=== PATIENT | female | born 1995 | race Caucasian/White ===

== ENCOUNTER 2017-04-28 21:14 | Emergency (ER) | payer OTHER | END 2017-04-28 21:52 | disposition home or self-care (01) | LOC: ER 21:14 | DX: E03.9 Hypothyroidism, unspecified (principal); R19.7 Diarrhea, unspecified; R53.83 Other fatigue; J45.909 Unspecified asthma, uncomplicated; G43.909 Migraine, unspecified, not intractable, without status migrainosus; F43.10 Post-traumatic stress disorder, unspecified ==